=== PATIENT | male | born 1975 | race Caucasian/White ===

== ENCOUNTER → 2021-03-14 10:36 | Outpatient (BNVA) | payer SELFPAY | PROVIDERS: Visit Provider Physician Assistant Medical | DX: Z02.79 Encounter for issue of other medical certificate (principal) ==

== ENCOUNTER → 2023-02-03 10:59 | Outpatient (BNVA) | payer SELFPAY | PROVIDERS: Visit Provider Physician Assistant Medical | DX: Z02.79 Encounter for issue of other medical certificate (principal) ==

== ENCOUNTER 2023-08-15 08:19 | Outpatient (AMB) | payer OTHER, SELFPAY ==
--- NOTE | 2023-08-15 08:22 | AM.OFFWIN_ITS ---
Intake Vital Signs 3 08/15/23 08:29 Height 6 ft 3 in Weight 265 lb BMI 33.1 BP 152/86 H Blood Pressure Location Rt brachial Position Sitting Pulse 67 Pulse Source Pulse Oximeter Temp 98.6 F Temp Source Oral Pulse Oximetry (%) 98 Oxygen Delivery Method Room Air Intake Visit Reasons: [employer] Tick Bite R Lower Leg Patient Tobacco Use Status: Never used Tobacco Allergies No Known Allergies [No Known Allergies*] Allergy (Verified 08/15/23 08:30) Medication List - Last Reconciled 08/15/23 by Alexander Santamaria MD albuterol sulfate 90 mcg/actuation 2 puffs inhalation Q6H Do you need a note to return to daycare/school/sports/work: No HPI [employer] Tick Bite R Lower Leg 2 HPI0 Details Patient is a 48-year-old gentleman came in today to be evaluated for possible Lyme disease Patient got bit by a take which was noticed on his right lower leg 7 days ago Couple of days ago he started noticing a rash developing so he decided to come in I also noticed that his blood pressure is elevated at 152/86, patient has not seen his primary care in 3 years We have talked about it in detail, I would recommend that he get a blood pressure monitor and start logging his blood pressure Diet was also discussed no salt diet is recommended, patient says that he does not eat too much junk food However he is aware that he needs to lose weight. Also advised patient to book appointment with primary care. On examination his right lower leg shows a bull's-eye rash He does not have any arthrosis No swelling of joints I will be treating him with doxycycline 100 mg b.i.d. for 21 days. Review system: There is no headache no dizziness, no blurring of vision, no chest pain no shortness a breath, no fever no chills no nausea vomiting PFSH Social History Patient Tobacco Use Status: Never used Tobacco Review of Systems Const All systems reviewed & are unremarkable except as noted in HPI and below Physical Exam Vital Signs: Last Vital Signs Temp 98.6 F 08/15/23 08:29 Pulse 67 08/15/23 08:29 BP 152/86 H 08/15/23 08:29 Pulse Ox 98 08/15/23 08:29 Oxygen Delivery Method Room Air 08/15/23 08:29 BMI result Body Mass Index 33.1 Const General: no acute distress Orientation/consciousness: patient oriented x3 HEENT Other: Wear glasses Eyes General: appearance normal, both eyes and all related structures Resp Effort & Inspection: normal respiratory effort and able to speak in complete sentences Cardio Other: S1-S2 Neuro General: patient oriented x3 Extrem Ankle/foot/toe images: 2 1. Erythematous rash with central clearing 3 in diameter Psych Mental Status: mental status grossly normal Assessment & Plan Assessment & Plan (1) Tick bite of right lower leg: Code(s): S80.861A - Insect bite (nonvenomous), right lower leg, initial encounter; W57.XXXA - Bitten or stung by nonvenomous insect and other nonvenomous arthropods, initial encounter Qualifiers: Encounter type: initial encounter Qualified Code(s): S80.861A - Insect bite (nonvenomous), right lower leg, initial encounter; W57.XXXA - Bitten or stung by nonvenomous insect and other nonvenomous arthropods, initial encounter (2) Cellulitis of leg, right: Code(s): L03.115 - Cellulitis of right lower limb (3) Elevated blood pressure reading: Code(s): R03.0 - Elevated blood-pressure reading, without diagnosis of hypertension (4) Obesity due to excess calories: Code(s): E66.09 - Other obesity due to excess calories Qualifiers: Obesity classification: adult class 1 (BMI 30 - 34.9) Serious obesity comorbidity presence: with serious comorbidity Body mass index: BMI 33.0-33.9 Qualified Code(s): E66.09 - Other obesity due to excess calories; Z68.33 - Body mass index [BMI] 33.0-33.9, adult Plan Patient is a 48-year-old gentleman came in today to be evaluated for possible Lyme disease Patient got bit by a take which was noticed on his right lower leg 7 days ago Couple of days ago he started noticing a rash developing so he decided to come in I also noticed that his blood pressure is elevated at 152/86, patient has not seen his primary care in 3 years We have talked about it in detail, I would recommend that he get a blood pressure monitor and start logging his blood pressure Diet was also discussed no salt diet is recommended, patient says that he does not eat too much junk food However he is aware that he needs to lose weight. Also advised patient to book appointment with primary care. On examination his right lower leg shows a bull's-eye rash He does not have any arthrosis No swelling of joints I will be treating him with doxycycline 100 mg b.i.d. for 21 days. Medications: New 2 doxycycline hyclate 100 mg PO BID 21 days 42 caps 0RF Coding Level of Care Code New Pt Level 4 (48871) Diagnoses Tick bite of right lower leg, initial encounter S80.861A; W57.XXXA Encounter type: initial encounter Cellulitis of leg, right L03.115 Elevated blood pressure reading R03.0 Class 1 obesity due to excess calories with serious comorbidity and body mass index (BMI) of 33.0 to 33.9 in adult E66.09; Z68.33 Obesity classification: adult class 1 (BMI 30 - 34.9) Serious obesity comorbidity presence: with serious comorbidity Body mass index: BMI 33.0-33.9
[2023-08-15 08:29] VITALS: BP 152/86; PULSE 67; TEMP 37; O2SAT 98; BMI 33.1
== END 2023-08-15 08:55 | disposition home or self-care (01) ==
PROVIDERS: Visit Provider Internal Medicine
DX: S80.861A Insect bite (nonvenomous), right lower leg, initial encounter (principal); W57.XXXA Bitten or stung by nonvenomous insect and other nonvenomous arthropods, initial encounter; L03.115 Cellulitis of right lower limb; R03.0 Elevated blood-pressure reading, without diagnosis of hypertension; E66.09 Other obesity due to excess calories; Z68.33 Body mass index [BMI] 33.0-33.9, adult
CPT/HCPCS: 99204